=== PATIENT | female | born 1940 | race Caucasian/White ===

== ENCOUNTER 2024-08-10 07:49 | Outpatient (CLI) | payer MEDICARE, SELFPAY ==
--- NOTE | 2024-08-10 07:45 | RT.EKG_ITS ---
APPROVED REPORT Exam: Resting ECG Reason for Exam: hx of MD Patient Location: O HR:68 bpm ECG Measurements Heart Rate 68 AXIS IN 179 P 43 QRSd 106 QRS -24 QT 398 T 179 QTc 424 Conclusion Sinus rhythm...normal P axis, V-rate 50- 99 Borderline left axis deviation...QRS axis (-15,-29) Abnormal R-wave progression, early transition...QRS area>0 in V2 Abnrm T, consider ischemia, anterolateral lds...T <-0.20mV, I aVL V2-V6
== END 2024-08-10 07:50 | disposition home or self-care (01) ==
LOC: DI.CARD 07:49
PROVIDERS: PCP Internal Medicine; Visit Provider Registered Nurse
DX: I21.4 Non-ST elevation (NSTEMI) myocardial infarction (principal); I25.10 Atherosclerotic heart disease of native coronary artery without angina pectoris; I24.9 Acute ischemic heart disease, unspecified
CPT/HCPCS: 93010

== ENCOUNTER → 2024-08-10 11:05 | Outpatient (BNVA) | payer MEDICARE, SELFPAY | PROVIDERS: PCP Internal Medicine; Referring Provider Internal Medicine; Visit Provider Registered Nurse | DX: I25.2 Old myocardial infarction (principal); I50.20 Unspecified systolic (congestive) heart failure | CPT/HCPCS: 93005; 99203 ==

== ENCOUNTER 2024-11-09 07:50 | Outpatient (CLI) | payer MEDICARE, SELFPAY | END 2024-11-09 07:51 | disposition home or self-care (01) | LOC: DI.CARD 07:50 | PROVIDERS: PCP Internal Medicine; Visit Provider Registered Nurse | DX: I25.10 Atherosclerotic heart disease of native coronary artery without angina pectoris (principal); I42.9 Cardiomyopathy, unspecified | CPT/HCPCS: 93010 ==

== ENCOUNTER → 2024-11-09 15:00 | Outpatient (BNVA) | payer MEDICARE, SELFPAY | PROVIDERS: PCP Internal Medicine; Referring Provider Internal Medicine; Visit Provider Registered Nurse | DX: I50.20 Unspecified systolic (congestive) heart failure (principal); I25.10 Atherosclerotic heart disease of native coronary artery without angina pectoris; Z79.02 Long term (current) use of antithrombotics/antiplatelets | CPT/HCPCS: 99214 ==